=== PATIENT | female | born 1950 | race Asian ===

== ENCOUNTER 2024-01-26 05:20 | Inpatient (IN) | payer OTHER ==
[~2024-01-26] VITALS: Ht 142.2 cm; Wt 56.7 kg
[2024-01-26] MEDS ORDERED: SCOPOLAMINE HYDROBROMIDE 1 MG PATCH .72 H (TRANSDERM-SCOP) TD ONE (05:43)
[2024-01-26] MEDS ORDERED: ACETAMINOPHEN 500 MG TABLET ONE (05:43)
[2024-01-26] MEDS ORDERED: CELECOXIB 100 MG CAPSULE ONE (05:43)
[2024-01-26] MEDS ORDERED: oxyCODONE HCL 10 MG TAB.ER.12H PO ONE (05:44)
[2024-01-26] MEDS ORDERED: GABAPENTIN 300 MG CAPSULE ONE (05:44)
[2024-01-26] MEDS: GABAPENTIN 300 MG CAPSULE PO ONE (06:05)
[2024-01-26] MEDS: SCOPOLAMINE HYDROBROMIDE 1 MG PATCH .72 H (TRANSDERM-SCOP) TD ONE (06:05)
[2024-01-26] MEDS: CELECOXIB 100 MG CAPSULE PO ONE (06:05)
[2024-01-26] MEDS: ACETAMINOPHEN 500 MG TABLET PO ONE (06:05)
[2024-01-26 06:39] VITALS: PULSE 74; RESP 18; TEMP 97.3; O2SAT 96
[2024-01-26] MEDS ORDERED: CEFAZOLIN SOD 2 GM in D5W 50 ML IV ONE (06:45)
[2024-01-26] MEDS: oxyCODONE HCL 10 MG TAB.ER.12H PO ONE (06:59)
[2024-01-26] MEDS ORDERED: BISACODYL 10 MG/SUPPOSITORY RC PRN (07:00)
[2024-01-26] MEDS ORDERED: NALOXONE HCL 0.4 MG/ML AMP (NARCAN) IVP PRN ×3 (07:00)
[2024-01-26] MEDS ORDERED: LACTULOSE 20 GM/30 ML UDC PO PRN (07:00)
[2024-01-26] MEDS ORDERED: METOCLOPRAMIDE HCL 10 MG/2 ML VIAL IVP PRN ×2 (07:00→08:00)
[2024-01-26] MEDS ORDERED: DIPHENHYDRAMINE HCL 25 MG CAPSULE PO PRN (07:00)
[2024-01-26] MEDS ORDERED: DEXAMETHASONE SOD PHOSPHATE 4 MG/ML VIAL ONE (07:00)
[2024-01-26] MEDS ORDERED: HYDROmorphone 1 MG/ML INJ. CARTRIDGE IVP PRN ×4 (08:00→11:00)
[2024-01-26] MEDS ORDERED: hydrALAZINE HCL 20 MG/ML VIAL IVP PRN (08:00)
[2024-01-26] MEDS ORDERED: MEPERIDINE HCL/PF 25 MG/ML DISP.SYRIN IVP PRN (08:00)
[2024-01-26] MEDS ORDERED: LR 1,000 ML IV SCH (08:00)
[2024-01-26 10:15] VITALS: BP_SYST 146
[2024-01-26] MEDS ORDERED: traMADol HCL HCL 50 MG TABLET (ULTRAM) PO PRN (11:00)
[2024-01-26] MEDS ORDERED: oxyCODONE HCL 5 MG TABLET PO PRN ×2 (11:00)
[2024-01-26] MEDS ORDERED: LORATADINE 10 MG TABLET PO PRN (11:00)
[2024-01-26] MEDS ORDERED: ceFAZolin SODIUM 2 GM in D5W 50 ML IV SCH (11:15)
[2024-01-26] MEDS ORDERED: ONDANSETRON HCL 4 MG/2 ML VIAL IVP PRN (11:45)
[2024-01-26] MEDS ORDERED: HYDROmorphone 1 MG/ML INJ. CARTRIDGE ONE (13:45)
[2024-01-26] MEDS ORDERED: KETOROLAC TROMETHAMINE 10 MG TABLET (TORADOL) PO SCH (14:00)
[2024-01-26] MEDS: HYDROmorphone 1 MG/ML INJ. CARTRIDGE IVP PRN (14:00)
[2024-01-26] MEDS ORDERED: ACETAMINOPHEN 500 MG TABLET PO SCH (14:00)
[2024-01-26] MEDS ORDERED: SENNOSIDES/DOCUSATE SODIUM 1 TAB TABLET(SENOKOT-S) PO SCH (21:00)
[2024-01-27] MEDS ORDERED: TAMSULOSIN HCL 0.4 MG CAP PO SCH (09:00)
[2024-01-27] MEDS ORDERED: ASPIRIN 81 MG TAB.CHEW PO SCH (09:00)
[2024-01-27] MEDS ORDERED: CELECOXIB 200 MG CAPSULE PO SCH (11:00)
== END 2024-01-26 15:30 | disposition home or self-care (01) | DRG 470 ==
LOC: SMU 05:20
PROVIDERS: ADMIT Student in an Organized Health Care Education/Training Program; ATTEND Student in an Organized Health Care Education/Training Program
PROC: 8E0Y0CZ Robotic Assisted Procedure of Lower Extremity, Open Approach (ICD-10-PCS; 2024-01-26)
PROC: 0SRC0JZ Replacement of Right Knee Joint with Synthetic Substitute, Open Approach (ICD-10-PCS; principal; 2024-01-26 07:00)
DX: M17.11 Unilateral primary osteoarthritis, right knee (principal)
CPT/HCPCS: 73560; 82948; 87081; 88305; 88311; 97110-GP; 97116-GP; 97530-GP; C1713; C1776; J0690; J0696; J1100; J1170; J2405; J3010; J3370; J3465; J3490; J7060; J7120